=== PATIENT | female | born 1940 | race Caucasian/White ===

== ENCOUNTER 2024-05-12 08:56 | Outpatient (AMB) | payer MEDICARE, OTHER, SELFPAY ==
[2024-05-12 09:13] VITALS: BP 166/83; PULSE 98; RESP 16; TEMP 36.3; O2SAT 95; BMI 25.1
--- NOTE | 2024-05-12 09:13 | ACNOTE_ITS ---
Vital Signs 05/12/24 09:13 Height 1.75 m Height Method Stated Weight 77.167 kg Weight Measurement Method Standing Scale BMI 25.1 BP 166/83 H Blood Pressure Source Automatic Cuff Blood Pressure Location Left Upper Arm Position Sitting Respiration 16 Pulse 98 Pulse Source Monitor Temp 97.3 F Temp Source Temporal Artery Scan Pulse Oximetry (%) 95 Oxygen Delivery Method Room Air Allergies/Meds Allergies & Medications Allergies NKA* Allergy (Uncoded 05/12/24 09:15) Medication Reconciliation aspirin 81 mg chewable tablet 81 mg PO QDAY coronary artery disease 30 days #30 tabs 05/12/24 [Rx] buspirone 5 mg tablet 5 mg PO BID anxiety 30 days #60 tabs 05/12/24 [Rx] metoprolol tartrate 25 mg tablet 25 mg PO BID atrial fibrillation 30 days #60 tabs 05/12/24 [Rx] MA Intake Visit Data Collection New Patient or Established: Established Patient (seen at [facility] within 3 years) Seen by Clinical Staff ONLY (RN/MA): No Reason for Visit:: Establish care Pain Present Currently: No Pain scale:: 0 Pain Scale Used: [employer] Required: No PCP or OBGYN visit in last 3 months: No Hx Now: No Do You Feel Safe at Home: Yes Authorities Contacted: N/A Smoking Status Smoking Status: Never smoker Immunization / Flu Flu Vaccine in the Last 12 Months: No Flu Vaccine Exclusion Criteria: No Exclusion Criteria Past Medical History Social History SMOKING STATUS: Smoking status: Never smoker Past Medical History Comments PM COMMENT: Past Medical History: Paroxysmal afib not on anticoagulation, prior H. pylori infection, and generalized anxiety Family History: No known family history of diabetes, hypertension, heart disease, or cancers Surgical History: None Social History: Denies history of smoking, denies current alcohol use, denies recreational drug use Current Medications: None Allergies: No known drug allergies Patient Portal Questionaires Social History Tobacco History Smoking Status: Never smoker Domestic Abuse History Do You Feel Safe at Home: Yes Review of Systems Report any current symptoms Only answer those that you have currently: Past Medical History Past Medical History Have you ever been diagnosed with any of the following: History of Present Illness HPI Narrative Patient is a 84-year-old female with past medical history of paroxysmal afib not on anticoagulation, prior H. pylori infection, and anxiety who presented to the [facility] on 05/12/2024 as a new patient to establish care. Patient states that she has not seen a doctor in years. Patient overall feels well, and reports only medical history includes afib. However, she has declined anticoagulation medication in the past and currently declines anticoagulation due to easy bruising. Risks and benefits were discussed with the patient. Patient states that she does take a baby aspirin daily. She reports recently she has been having dyspepsia symptoms that feel similar to when she was diagnosed with H. pylori and would like to get screened for H. pylori. Currently she is not taking a PPI. Patient would like to restart anxiety medication buspirone as well which she used to take. Follow up visit to be scheduled in 2 weeks to follow up on lab results. Objective/Exam Narrative Physical exam: Physical Exam General: Awake and in no acute distress. Conversational and non-toxic appearing. HEENT: Normocephalic, atraumatic, mucous membranes moist. Heart: Irregular rate and rhythm, normal S1 and S2, no murmurs. Lungs: Clear to auscultation with no wheezing or crackles. Abdomen: Soft, nondistended, nontender, positive bowel sounds. ?No guarding or rebound tenderness. Neurologic: Alert and oriented x3, no gross neurological deficit, and patient able to move all 4 extremities. Extremities: No edema. Skin: No rash or ecchymoses. Assessment & Plan Diagnosis / Problem List (1) Atrial fibrillation: Status: Acute Assessment & Plan: Pulse 98 and irregular in the office. Patient declines anticoagulation for now. She does take a baby aspirin. CHADS-Vasc 3 HAS-BLED 2 Plan: -EKG ordered -TSH and Free T4 -Prescribed metoprolol tartrate 25 mg BID -Prescribed aspirin 81 mg qday (2) Generalized anxiety disorder: Status: Acute Assessment & Plan: Patient endorses history of anxiety and previously was taking buspirone. Plan: -Prescribed buspirone 5 mg BID (3) GERD (gastroesophageal reflux disease): Status: Acute Assessment & Plan: Patient endorses symptoms similar to previous episode during which she was treated for H. pylori. Patient states she completed treatment at that time. Plan: -H. pylori stool antigen screen -May try OTC PPI for dyspepsia (4) Encounter for routine adult medical examination: Status: Acute Assessment & Plan: Patient has not seen a doctor in a few years. Ordered routine labs. Follow up in 2 week for results. Plan: -CMP -CBC -UA -Lipid panel -Hgb A1c Orders: Orders Comprehensive Metabolic Panel 05/12/24 Angelika Barker MD Z00.00 - Encounter for general adult medical examination without abnormal findings Free T4 (Free Thyroxine) 05/12/24 Angelika Barker MD E03.9 - Hypothyroidism, unspecified Urinalysis, C/S if Indicated 05/12/24 Angelika Barker MD Z00.00 - Encounter for general adult medical examination without abnormal findings Lipid Panel 05/12/24 Angelika Barker MD Z00.00 - Encounter for general adult medical examination without abnormal findings CBC 05/12/24 Angelika Barker MD Z00.00 - Encounter for general adult medical examination without abnormal findings Thyroid Stimulating Hormone 05/12/24 Angelika Barker MD E03.9 - Hypothyroidism, unspecified EKG (RT) 05/12/24 Angelika Barker MD I48.91 - Unspecified atrial fibrillation Ambulatory Hemoglobin A1C 05/12/24 Angelika Barker MD Z13.1 - Encounter for screening for diabetes mellitus Helicobacter pylori Ag, Stool* 05/13/24 Avi Small MD K29.70 - Gastritis, unspecified, without bleeding Additional Assessment Attending note: I, Avi Small MD, attest that I was physically present for the grimaldo portions of the service and evaluated the patient with the resident and I reviewed and discussed the case with the resident and agree with the resident's findings and plans of care as documented above. Avi Small MD Advanced Care Planning Advance care planning discussed with:: patient Physician Billing New Patient New Patient: E/M Level 3-CPT 31194 Office Procedures [facility] Level of Care Nursing/Assessment Patient Status: Established Patient Nursing Assessment/Reassessment: Medication Reconciliation, Update PMH in EMR and Vital Signs Coordination of Care: Complex Care and Chronic Disease 1-5, Consent,records obtained, informed consent, Education Simp Pt/Fam, Lab and Imaging orders and Staff clarify orders Established Patient Charge Established Patient Point Assignment: 100 Established Patient Point Charge: Level 3 (80-115)
== END 2024-05-12 10:42 | disposition home or self-care (01) ==
LOC: HODAHC 08:56
PROVIDERS: PCP Internal Medicine; Referring Provider Internal Medicine; Supervising Provider Internal Medicine; Visit Provider Student in an Organized Health Care Education/Training Program
DX: Z00.00 Encounter for general adult medical examination without abnormal findings (principal); I48.91 Unspecified atrial fibrillation; F41.1 Generalized anxiety disorder; K21.9 Gastro-esophageal reflux disease without esophagitis; E03.9 Hypothyroidism, unspecified
CPT/HCPCS: 99213; G0463

== ENCOUNTER → 2024-05-13 | Outpatient (CLI) | payer MEDICARE, SELFPAY ==
[2024-05-13 12:02] LABS: Basophils # (Auto) 0.1 Thou/mm3 (0.0-0.2); Basophils % (Auto) 1 % (0-2.5); Eosinophils # (Auto) 0.2 Thou/mm3 (0.0-0.5); Eosinophils % (Auto) 3 % (0-10); Hematocrit 40.9 % (36.0-46.0); Hemoglobin 12.8 g/dL (12.0-16.0); Immature Granulocytes % (Auto) 0 % (0-0); Immature Granulocytes Auto 0.02 Thou/mm3 (0.00-0.00); Lymphocytes # (Auto) 0.9 Thou/mm3 (1.0-4.8); Lymphocytes % (Auto) 14 % (10-50); Mean Corpuscular HGB Conc 31.3 g/dl (31.0-37.0); Mean Corpuscular Hemoglobin 27.6 pg (25.0-35.0); Mean Corpuscular Volume 88 fL (80-100); Monocytes # (Auto) 0.5 Thou/mm3 (0.0-0.8); Monocytes % (Auto) 7 % (0-12); Neutrophils # (Auto) 5.2 Thou/mm3 (1.8-7.7); Neutrophils % (Auto) 76 % (37-80); Nucleated Red Blood Cell % 0 /100 WBC (0); Platelet Count 202 Thou/mm3 (140-440); RDW Standard Deviation 46.1 fL (36.4-46.3); Red Blood Count 4.63 Miln/mm3 (4.00-5.20); White Blood Count 6.8 Thou/mm3 (3.6-11.0)
[2024-05-13 12:12] LABS: Glucose Estimated Average 120 mg/dL (80-131); Hemoglobin A1C 5.8 % Hgb (4.8-6.0)
[2024-05-13 12:19] LABS: Alanine Aminotransferase 56 U/L (10-49); Albumin, Serum 4.1 gm/dL (3.4-4.8); Albumin/Globulin Ratio 1.5 (1.2-2.2); Alkaline Phosphatase 106 U/L (46-116); Anion Gap 7 (7-16); Aspartate Amino Transferase 48 U/L (0-34); BUN/Creatinine Ratio 18 Ratio (12-20); Bilirubin,Total 1.1 mg/dL (0.3-1.2); Blood Urea Nitrogen 21 mg/dL (9-23); Calcium 8.7 mg/dL (8.3-10.6); Calcium (Corrected) 8.7 mg/dL (8.5-10.1); Carbon Dioxide 28.1 mMol/L (20.0-31.0); Chloride 106 mMol/L (98-107); Cholesterol 133 mg/dL (132-200); Creatinine (Component) 1.2 mg/dL (0.6-1.3); Free T4 (Free Thyroxine) 1.21 ng/dL (0.89-1.76); Globulin 2.7 gm/dL (2.3-3.5); Glucose 119 mg/dL (74-106); HDL Cholesterol 33 mg/dL (40-60); LDL Cholesterol,Calculated 84 mg/dL (0-130); Osmolality,Calculated 285 (275-295); Potassium 4.2 mMol/L (3.4-5.1); Sodium 141 mMol/L (136-145); Thyroid Stimulating Hormone 5.24 uIU/mL (0.55-4.78); Total Protein 6.8 gm/dL (5.7-8.2); Triglycerides 80 mg/dL (30-150); eGFR 45 See Note
== END | disposition home or self-care (01) ==
PROVIDERS: PCP Student in an Organized Health Care Education/Training Program; Referring Provider Student in an Organized Health Care Education/Training Program; Visit Provider Student in an Organized Health Care Education/Training Program
DX: Z00.00 Encounter for general adult medical examination without abnormal findings (principal); Z13.1 Encounter for screening for diabetes mellitus; E03.9 Hypothyroidism, unspecified
CPT/HCPCS: 36415; 80053; 80061; 81001; 83036; 84439; 84443; 85025